=== PATIENT | female | born 1940 | race Caucasian/White ===

== ENCOUNTER 2017-03-06 08:53 | Outpatient (CLI) | payer MEDICARE ==
[2015-03-26 11:11] VITALS: BP 145/68
== END 2017-03-06 08:54 ==
LOC: LAB 08:53
PROVIDERS: ATTEND Family Medicine
DX: E03.9 Hypothyroidism, unspecified (principal)
CPT/HCPCS: 36415; 84443

== ENCOUNTER 2018-03-08 09:06 | Outpatient (CLI) | payer MEDICARE ==
[2015-03-26 11:11] VITALS: BP 145/68
[2018-03-08 16:41] LABS: BASO % 0.5 % (0.0-1.5); EOS % 6.1 % (0.0-6.8); LYMPH ABS # 1.21 thou/uL (0.60-4.00); MCH. 28.9 pg (28.0-34.0); MONOCYTE % 5.2 % (0.0-11.0); MONOCYTE ABS # 0.37 thou/uL (0.00-0.90); PLATELET COUNT 263 thou/uL (130-400)
== END 2018-03-08 09:08 ==
LOC: LAB 09:06
PROVIDERS: ATTEND Family Medicine
DX: R53.82 Chronic fatigue, unspecified (principal); E03.9 Hypothyroidism, unspecified
CPT/HCPCS: 36415; 84443; 85025

== ENCOUNTER 2019-03-13 09:16 | Outpatient (CLI) | payer MEDICARE ==
[2015-03-26 11:11] VITALS: BP 145/68
== END 2019-03-13 09:21 ==
LOC: LAB 09:16
PROVIDERS: ATTEND Family Medicine
DX: E03.9 Hypothyroidism, unspecified (principal)
CPT/HCPCS: 36415; 84443